=== PATIENT | male | born 1950 | race African-American/Black ===

== ENCOUNTER 2021-09-25 07:04 | Day surgery (SDC) | payer OTHER ==
[2021-09-20 13:59] LABS: Absolute Lymphocytes (CBC) 2.3 K/uL (0.7-4.9); Hematocrit 45.9 % (39.6-49.0); Lymphocytes % 46.7 % (15.3-44.8); MPV 8.5 fL (7.6-11.3); RBC Red Blood Cell Count 5.73 M/uL (4.33-5.43)
[2021-09-20 14:00] LABS: Potassium 3.5 mmol/L (3.5-5.1); Protime INR 1.09
--- NOTE | 2021-09-20 14:00 | RAD REPORT ---
EXAM DESCRIPTION: RAD - Chest Pa And Lat (2 Views) - 09/20/2021 1:43 pm CLINICAL HISTORY: Pre op pending urolift COMPARISON: No comparisons FINDINGS: Lines: None. Lungs: No evidence of edema or pneumonia. Pleural: No significant pleural effusions or pneumothorax. Cardiac: Cardiomegaly. Bones: No acute fractures. Left shoulder arthroplasty. Other: IMPRESSION: No acute cardiopulmonary disease.
[2021-09-20 14:01] LABS: SARS-CoV-2 Antigen Rapid Res Negative (Negative)
--- NOTE | 2021-09-22 17:33 | EKG ---
Test Date: 2021-09-20 Test Time: 13:23:33 Pm Head Cook: JENNIFFER MEASUREMENT RESULTS: Intervals: Rate: 73 LA: 216 QRSD: 108 QT: 434 QTc: 478 [place]: P: 30 LA: 216 QRS: -25 T: 118 INTERPRETIVE STATEMENTS: Sinus rhythm with 1st degree AV block with occasional premature ventricular complexes and premature atrial complexes Minimal voltage criteria for LVH, may be normal variant Septal infarct, age undetermined T wave abnormality, consider lateral ischemia Abnormal ECG Compared to ECG 09/20/2021 13:21:05 No significant changes Electronically Signed On 09-22-21 17:29:58 CDT by Colby Dozier
--- NOTE | 2021-09-22 17:33 | EKG ---
Test Date: 2021-09-20 Test Time: 13:21:05 Director Of Catering: JENNIFFER MEASUREMENT RESULTS: Intervals: Rate: 77 LA: 216 QRSD: 104 QT: 424 QTc: 479 [place]: P: 1 LA: 216 QRS: -24 T: 123 INTERPRETIVE STATEMENTS: Sinus rhythm with 1st degree AV block with premature supraventricular complexes with frequent premature ventricular complexes Minimal voltage criteria for LVH, may be normal variant Septal infarct, age undetermined T wave abnormality, consider lateral ischemia Abnormal ECG No previous ECG available for comparison Electronically Signed On 09-22-21 17:30:03 CDT by Colby Dozier
[2021-09-25] MEDS ORDERED: NA CHLORIDE 0.9% 1,000 ML ONE (07:13)
[2021-09-25] MEDS ORDERED: CEFAZOLIN 2 GM IN 0.9% NACL 2 GM/100 ML BAG ONE (07:13)
[2021-09-25] MEDS ORDERED: ACETAMINOPHEN 500 MG TAB ONE (08:01)
[2021-09-25] MEDS ORDERED: MIDAZOLAM HCL 2 MG/2 ML INJ ONE (08:49)
[2021-09-25] MEDS ORDERED: FENTANYL CITR 100 MCG/2 ML ONE (08:49)
[2021-09-25] MEDS ORDERED: LIDOCAINE 1% MPF 5 ML VIAL ONE (08:49)
[2021-09-25] MEDS ORDERED: propofoL 200 MG/20 ML VIAL IV ONE ×2 (08:49→09:26)
[2021-09-25] MEDS ORDERED: ONDANSETRON 4 MG/2 ML VIAL ONE (08:52)
[2021-09-25] MEDS ORDERED: OPIUM/BELLADONNA SUPPOS (30-16.2 MG) PR ONE ×2 (10:10→10:16)
[2021-09-25] MEDS ORDERED: CODEINE 30MG/APAP 300MG TAB PO PRN (10:10)
[2021-09-25] MEDS: HYDROMORPHONE HCL 1 MG/ML INJ ONE ×2 (10:18→10:23)
[2021-09-25] MEDS ORDERED: CODEINE 30MG/APAP 300MG TAB ONE (11:25)
[2021-09-25 13:39] VITALS: BP 139/69; TEMP 97; O2SAT 96
--- NOTE | 2021-09-25 22:14 | OP ---
Surgeon: CLARICE CLARK Preoperative Diagnoses: 1.Benign prostatic hypertrophy with lower urinary tract obstruction and symptoms. 2.Urge incontinence with detrusor instability. Postoperative Diagnoses: 1.Benign prostatic hypertrophy with lower urinary tract obstruction and symptoms. 2.Urge incontinence with detrusor instability. Principal Procedure: Prostatic urethral lift/UroLift with 6 implants placed. Indication For Procedure: Mr. Davenport is a 71-year-old gentleman, a type 2 diabetic with significan t obstruction due to BPH associated with a 70 g gland. He also had a degree of urge incontinence, wh ich was being managed with anticholinergics, most recently tolterodine. He presents for definitive m anagement of the obstruction in hopes to be able to eliminate the need for the tamsulosin and potenti ally eventually the need for the anticholinergic. Procedure In Detail: The patient was consented in the preoperative holding area before being transfe rred to the operative suite where general anesthesia was induced. He was given Ancef 2 g IV antimicr obial prophylaxis and Pneumoboots were provided for DVT prophylaxis. He was placed in the lithotomy position, padded and secured to the table appropriately. His genitalia were prepped using Hibiclens and draped in standard fashion. The case was begun using the 20-Khmer cystoscopy bridge and scope t o traverse the urethra and into the bladder with relative ease. There was noted lateral lobar hypert rophy with an elevated median bar without significant intravesical projection. As a result, the turner tment site was selected to begin on the left side at the bladder neck, and at approximately 2 cm dist al to the bladder neck, the first implant was targeted in the anterolateral zone of the prostate silvia gned to create an anterior channel. The distal tip of the delivery device was angled laterally appro ximately 20 degrees at this position to compress the lateral lobe. The trigger was pulled, thereby d eploying a needle containing the implant through the prostate. The needle was retracted allowing the end piece to be delivered to the capsular surface of the prostate, further tensioning was performed, and then the implant was tensioned to assure capsular feeding and removal of a slack monofilament. The device was then angled back towards the midline and slowly advanced proximally about 1-2 mm until cystoscopic verification of the monofilament was present and centered within the delivery bay. The urethral end piece was then affixed to the monofilament, thereby tailoring the size of the implant, a nd excess monofilament was severed. The delivery device was then readvanced into his bladder. A swi tch of the implant delivery device with the more recent model of the UroLift was then performed and a similar technique was employed on the right side, delivering an implant in the anterolateral surface approximately 2 cm distal to the bladder neck on the right. We then placed an additional implant at the level of the verumontanum on the left, and a 4th implant at the verumontanum on the right. Cyst oscopic visualization was then performed and there was still some evident obstruction with anterior l obar overhang associated with the elevated median bar. As a result, since the majority of that overh ang was on the left side, an additional implant was placed superior to the bladder neck implant on th e left. Resurvey of the area was then performed, and there was still a degree of anterolateral overh ang; so an additional implant, a 3rd at the bladder neck was placed in a stacked position even higher in an effort to open the bladder neck. In the end, there was a channel that had been created, and t he lateral lobar hypertrophy within the mid and apical regions of the prostate were well . In the end, with his bladder decompressed, the survey of the anterior channel did reveal its patency from the bladder neck through to the verumontanum. As a result, I left his bladder full and removed the cystoscope replacing it with an 18-Khmer coude tipped Lee catheter. 15 cc of sterile water wa s placed in the balloon, and there was efflux of light pink urine. I then irrigated the catheter to ensure absence of any clots within the bladder, and when none were noted, the catheter was connected to a leg bag as well as to a StatLock. He was taken out of the lithotomy position, awakened from gen eral anesthesia, transferred to a stretcher, and then transferred to the recovery room in good condit ion. Complications: None. Discharge Disposition: He will be discharged with instructions for how to remove the urethral Lee catheter tomorrow morning at 7 a.m., as well as with a prescription for Bactrim Double Strength table ts once daily for the next 3 days. Tylenol with Codeine will also be provided for pain management, a nd subsequent followup should be established in about a month. I discussed with the patient preopera tively the likely need for continuation of oral anticholinergic therapy given his preexisting detruso r instability. ZACHARY/MODL Voice ID: [id number] Report ID: [id number]
== END 2021-09-25 12:10 | disposition home or self-care (01) ==
LOC: OR 07:04
PROVIDERS: ATTEND Urology
PROC: 3E1K78Z Irrigation of Genitourinary Tract using Irrigating Substance, Via Natural or Artificial Opening (ICD-10-PCS; 2021-09-25)
PROC: 0T7D8DZ Dilation of Urethra with Intraluminal Device, Via Natural or Artificial Opening Endoscopic (ICD-10-PCS; principal; 2021-09-25 08:30)
DX: N40.1 Benign prostatic hyperplasia with lower urinary tract symptoms (principal); N39.41 Urge incontinence; Z20.822 Contact with and (suspected) exposure to COVID-19
CPT/HCPCS: 93005 ×2; 87088; 85025; 87086; 80048; 36415; 85610; 82947; 71046; 87811; 52441; 52442 ×5; 51700; J2704 ×2; J2250; J3010; J1170; J0690; J7030; J2405